=== PATIENT | male | born 1960 | race African-American/Black ===

== ENCOUNTER 2017-05-10 17:51 | Inpatient (IN) ==
--- NOTE | 2017-05-10 18:17 | Cardiology Consult Note ---
Assessment and Plan (1) Chest pain Status: Acute (2) Hypertension Status: Acute (3) Alcohol intoxication Status: Acute History of Present Illness - Data of Consult Patient: new to practice Consult date: 05/10/17 Requesting Physician: Fatoumata Calloway - Consult Narrative Reason for consult: cp History of present illness: The patient is evaluated emergently in the emergency room. I met him upon arrival. Foreign Clerk: Dr. Slade He is a 56-year-old black male without a prior cardiac history. Risk factors are hypertension, tobacco use. He seems to be inebriated during our interview, so the history is a bit tangential and unclear. From what I can ascertain he has been experiencing chest pain off and on for several days. It is a "sticking " in his chest. He is able to localize left-sided chest pain with one finger and is somewhat sore to palpation in his pectoralis at this location. He has some associated shortness of breath and overall feels that he may not be breathing very well. He has not had any other acute illness. He does acknowledge daily alcohol consumption. He has not had a change in his exercise tolerance, denies orthopnea, lower extremity edema, paroxysmal nocturnal dyspnea. He sees Dr. Slade but denies any history of myocardial infarction, cardiac history, cardiac catheterization, arrhythmia. He has a history of hypertension and one pressed acknowledges that he does not really take his medications routinely. In fact he may not take them at all. I was initially involved in this patient's care when a "STEMI alert" was activated. An ECG was faxed to me, which by my interpretation was underwhelming for clear-cut STEMI with significant baseline artifact in the lateral region in question. There is some mild poor R-wave progression anteriorly that could suggest a prior NH. Accordingly we asked him to stop in the ER for further evaluation. Repeat ECG in the emergency room does not show any ST elevation. The patient is hemodynamically stable. He has received Lovenox, Integrilin, Plavix and aspirin. Impression and plan: 1. Chest pain-in general rather atypical characteristics. We will check the patient's repeat cardiac biomarkers. His CK is significantly elevated, with a minimal amount of troponin which is much more consistent with a rhabdomyolysis type picture. Query as to whether or not he may have fallen or had some downtime, particularly given his inebriation. We will cycle his cardiac biomarkers. We can get an echocardiogram tomorrow to further evaluate his underlying cardiac function. Consider CT chest PE protocol. 2. Hypertension-he is noncompliant with his regimen. 3. Elevated CK-this is suspicious for muscle injury. 4. Inebriation-I believe he uses chronic alcohol daily for what he tells me. We should also check urine drug screen to rule out polysubstance abuse. CC: - Home Medications and Allergies Allergies/Adverse Reactions: Allergies Allergy/AdvReac Type Severity Reaction Status Date / Time No Known Allergies Allergy Verified 05/10/17 17:59 ROS unobtainable: due to mental status 12 point system: reviewed and no additional remarkable complaints except as stated Medical,Surgical,& Family Hx - Medical History Cardio: History of: Hypertension - Social History Smoking Status: Current every day smoker Frequency of Alcohol Use: Frequently Type of Drug Use: Unknown Functional capacity: independent ambulation Physical Examination Vital Signs Temp Pulse Resp BP Pulse Ox 97.3 F L 84 18 133/81 97 05/10/17 17:52 05/10/17 17:52 05/10/17 17:52 05/10/17 17:52 05/10/17 17:52 Exam: General appearance: normal weight, no acute distress - Head Head exam: Present: normal inspection, normocephalic, atraumatic. Absent: hematoma, laceration - Eye Eye exam: Present: EOMI. Absent: conjunctival injection, nystagmus, periorbital swelling, scleral icterus, laceration to eyelids Pupils: Present: PERRL. Absent: constricted, dilated, fixed, irregular, unequal - ENT ENT exam: Present: normal exam, normal external ear exam - Neck Neck exam: Present: normal inspection. Absent: lymphadenopathy, meningismus, tenderness, thyromegaly - Respiratory Respiratory exam: Present: clear to auscultation bilaterally, there is left wall chest tenderness to palpation. Absent: accessory muscle use - Cardiovascular Cardiovascular exam: Present: regular rate and rhythm. Absent: carotid bruit, gallop, JVD, rubs - GI/Abdominal GI/Abdominal exam: Present: normal bowel sounds, soft. Absent: distended, firm , guarding, hernia, mass, tenderness, rebound. - Extremities Exam Extremities exam: Present: normal inspection, normal capillary refill. Absent: calf tenderness, edema - Back Exam Back exam: Present: normal inspection. Absent: muscle spasm, vertebral tenderness - Neurological Exam Neurological exam: Present: alert, oriented X3, grossly intact without resting or intention tremor - Psychiatric Psychiatric exam: Present: normal affect, normal mood - Skin Skin exam: Present: normal color, warm, dry, intact. Absent: cyanosis, diaphoretic, rash, urticaria Result/EKG - EKG EKG results: interpreted by me, sinus rhythm, no acute changes
[2017-05-10] MEDS ORDERED: MORPHINE 2 MG/1 ML SYRINGE IV STA (18:30)
[2017-05-10] MEDS ORDERED: ASPIRIN 325 MG TABLET PO STA (18:30)
[2017-05-10] MEDS ORDERED: ONDANSETRON 4 MG/2 ML VIAL IV STA (18:30)
--- NOTE | 2017-05-10 18:38 | Emergency Department Note ---
Enrique John Manpreet, am scribing for, and in the presence of, Fatoumata Calloway DO 18: 33. IBrodie Debra, DO, personally performed the services described in this documentation, ascribed by Isauro Nunez in my presence, and it is both accurate and complete 837 . Arrival - Arrival Chief Complaint: Chest Pain Stated Complaint: cp sob ED Nursing Triage Note: c/o cp. Patient was transported from [facility] for a STEMI. patient has elevation in 3 leads on ekg from [facility]. Per ems patient showing elevation in 3 leads on there monitor. Patient states he is sob and they cp is coming and going on arrival to our ed. Patient states that his chest has been hurting for a couple days but got worse today and it started effecting his breathing. Mode of Arrival: Stretcher Limitations: No Limitations Source: Patient Time Seen by Provider: 05/10/17 18:20 - History of Present Illness HPI Narrative: Pt is a 56 y/o male who is transferred from [facility] with a STEMI. Pt states he had CP for a couple of days which worsened today. Pt also reports of EtOH use and drinking beer earlier today. Pt c/o being SOB currently and states he has seen a Dr in [place] recently. STEMI was intially activated but cardiology consultation by Dr. Lyons determined there was no ST elevation on EKG performed upon pt arrival. No other pains/complaints reported to the ED. Onset (ago): day(s) ("Several days") Consistency: constant Severity: moderate Severity scale (1-10): 4 Allergies/Adverse Reactions: Allergies Allergy/AdvReac Type Severity Reaction Status Date / Time No Known Allergies Allergy Verified 05/10/17 17:59 Home Medications: Home Medications Medication Instructions Recorded Confirmed Type Metoprolol Tartrate 25 mg PO BID 05/10/17 History Phenytoin Sodium Extended 100 mg PO TID 05/10/17 History dilTIAZem HCl [Diltiazem ER] 240 mg PO DAILY 05/10/17 History risperiDONE [Risperidone] 2 mg PO BID 05/10/17 History traZODone [Desyrel] 150 mg PO BEDTIME 05/10/17 History Review of System - Review of System 12 point system: reviewed and no additional remarkable complaints except as stated - Review of System Constitutional: Absent: chills, diaphoresis, fever Respiratory: Present: respiratory distress. Absent: cough, wheezing Cardiovascular: Present: chest pain Gastrointestinal: Absent: abdominal pain, nausea, vomiting, diarrhea Genitourinary male: Absent: dysuria Musculoskeletal: Absent: arm pain, back pain, lower back pain, leg pain, neck pain Neurological: Absent: headache, weakness, numbness, paresthesias Medical,Surgical,& Family Hx - Medical History Cardio: History of: CAD, Hypertension - Social History Smoking Status: Current every day smoker Frequency of Alcohol Use: Frequently Type of Drug Use: Unknown Exam Vital Signs: Vital Signs Temperature 97.3 F L 05/10/17 18:01 Pulse Rate 84 05/10/17 18:01 Respiratory Rate 24 05/10/17 18:04 Blood Pressure 133/81 05/10/17 18:01 O2 Sat by Pulse Oximetry 97 05/10/17 17:52 - General General appearance: alert, in no apparent distress, other (Smells of EtOH) - Head Head exam: Present: atraumatic, normocephalic, normal inspection - Eye Eye exam: Present: normal appearance, PERRL, EOMI - ENT ENT exam: Present: normal exam, normal oropharynx, mucous membranes moist, TM's normal bilaterally - Neck Neck exam: Present: normal inspection, full ROM, trachea midline. Absent: tenderness - Chest Chest inspection: Present: normal inspection, symmetric chest wall rise. Absent : tenderness - Respiratory Respiratory exam: Present: normal lung sounds bilaterally. Absent: accessory muscle use, respiratory distress - Cardiovascular Cardiovascular exam: Present: regular rate, normal rhythm, normal heart sounds. Absent: murmur, rubs, gallop - Abdominal Exam Abdominal exam: Present: soft, normal bowel sounds. Absent: distention, tenderness - Extremities Exam Extremities exam: Present: normal inspection, full ROM. Absent: tenderness - Back Exam Back exam: Present: normal inspection, full ROM. Absent: tenderness - Neurological Exam Neurological exam: Present: alert, oriented X3, CN II-XII intact, reflexes normal - Psychiatric Psychiatric exam: Present: normal affect, normal mood - Skin Skin exam: Present: warm, dry, intact, normal color. Absent: pallor Results - Labs Lab Results: I have reviewed the patients labs Labs: Laboratory Tests 05/10/17 05/10/17 18:45 18:45 D-Dimer, Quantitative 0.6 Total Creatine Kinase 1605 H CK-MB (CK-2) 1.4 Troponin I < 0.015 - Diagnostic Findings Procedure: Chest x-ray: report reviewed by me ("Chest X-ray: Normal Chest.")
[2017-05-10] MEDS ORDERED: ONDANSETRON 4 MG/2 ML VIAL ONE (18:50)
[2017-05-10] MEDS ORDERED: MORPHINE 2 MG/1 ML SYRINGE ONE (18:50)
--- NOTE | 2017-05-10 18:58 | XRay Report ---
Portable chest Indication: Chest pain Comparison: Same date at 4:55 PM Findings: Cardiomediastinal contours are normal. Lungs are clear bilaterally. No acute osseous abnormalities. Visualized upper abdomen demonstrates no acute pathology. Impression: Normal chest PROCEDURE INTERPRETED AT [facility] DEPARTMENT OF RADIOLOGY Final Report Signed by: Madelyn Tsai MD
[2017-05-10 19:22] LABS: Troponin I Only < 0.015 NG/ML (0.00-0.045)
[2017-05-10] MEDS ORDERED: SODIUM CHLORIDE 0.9% 1,000 ML IV STA (20:05)
--- NOTE | 2017-05-10 22:44 | Hospitalist History & Physical ---
Assessment and Plan (1) Elevated CPK Status: Acute Assessment and plan: This most likely is from musculoskeletal structures. Suspect. Muscle injury may be from his multiple falls. Suspect the patient may have been having syncope if not seizures Current Visit: Yes (2) Rhabdomyolysis Status: Acute Assessment and plan: This gentleman presents here with a CPK greater than 1600 he will need a lot of hydration. Is complaining of hurting all over. Right now start him with a D5 normal saline banana bag on top of what he has received already. Be receiving at least 5 L in the coming 48 hours. Follow electrolytes as time goes. A repeat BMP and phosphorous will be done tomorrow alongside magnesium. I also intend to alkalinize his urine by giving him sodium bicarbonate tablets at least 650 mg 3 times a day for the next 3 days. I do not know what his creatinine is like but oral sodium bicarbonate can only help in this regard. Current Visit: Yes (3) First degree AV block Status: Acute Assessment and plan: Repeat EKG in the morning. Current Visit: Yes (4) Chest pain Status: Acute Assessment and plan: So far troponins have been nondiagnostic. Suspect this is part of her body musculoskeletal injury. Underwent troponin series with 3 hours and verified. Current Visit: Yes (5) Hypertension Status: Acute Assessment and plan: Patient cannot remember what medicine was using at home. Probably start him on amlodipine 5 mg daily alongside Dyazide 37.5/25 once a day; obviously holding that until high numbers are verified on the monitoring. Current Visit: Yes (6) Alcohol intoxication Status: Acute Assessment and plan: Watch out for DVTs. Patient is put on Ativan. Will check alcohol level since I do not have the baseline at this point. Advised patient against alcohol overuse. Current Visit: Yes History of Present Illness Chief complaint: Generalized myalgias/elevated CPK passing out spells/? Rhabdomyolysis History of present illness: Mr. Duarte is a 56 year old male transferred to this hospital from an outlying hospital after he was found to have elevated CPK to the tune of 1670 and after crystalloid infusion came down to 1605 an EKG that shows first-degree AV block repolarization abnormalities that people at that hospital thought this was a ST elevation myocardial infarction. Patient's troponins modest CPK-MB is also modest. He acknowledges hurting all over but also having chest pains on and off. And he acknowledges having passing out spells starting about 2 months ago ; no documentation of seizure activity. Patient is a heavy alcoholic with a tremulousness now including vocal tremors. He has a history of hypertension taking a medication he cannot remember. He does not even remember his primary care provider. He has no known drug allergies. He wants to be a full code. He denies a history of diabetes. He is a smoker who states that he smoked less than 1 pack in 3 days. Has been counseled against smoking especially with his current medical health. He is not agreeable to quitting smoking at this point. Time for counseling with about 10 minutes. Home Medications Medication Instructions Recorded Confirmed Type Metoprolol Tartrate 25 mg PO BID 05/10/17 History Phenytoin Sodium Extended 100 mg PO TID 05/10/17 History dilTIAZem HCl [Diltiazem ER] 240 mg PO DAILY 05/10/17 History risperiDONE [Risperidone] 2 mg PO BID 05/10/17 History traZODone [Desyrel] 150 mg PO BEDTIME 05/10/17 History Allergies Allergy/AdvReac Type Severity Reaction Status Date / Time No Known Allergies Allergy Verified 05/10/17 17:59 Medical,Surgical,& Family Hx - Medical History Cardio: History of: CAD, Hypertension - Social History Smoking Status: Current every day smoker Frequency of Alcohol Use: Frequently Type of Drug Use: Unknown Review of systems: A 12 point system was attempted patient does not remember much. He does have history of these passing out spells, chest pains on and off, history of hypertension and was brought in to this hospital from another healthcare facility after an EKG was done and patient was found to have very high CPKs. The strong suggestion this gentleman is presenting here for rhabdomyolysis. Is I am sitting here I do not have any labs done at another institution. One is to do a complete laboratory evaluation study with complete metabolic profile and CBC HIV screen alcohol level urine drug screen cardiac markers and the urinalysis. Also obtain an MRI of the brain with contrast to evaluate for his new onset seizures. Exam - Constitutional Vitals: Period Temp Pulse Resp BP Sys/Cleary Pulse Ox Last 24 Hr 97.3 F-97.3 F 84-84 18-24 133-133/81-81 97 General appearance: normal weight, no acute distress, other (Tremulous with a tremulous voice) - Head Head exam: Present: normocephalic, atraumatic - Eye Eye exam: Present: EOMI Pupils: Present: CHARLES - ENT ENT exam: Present: normal oropharynx - Neck Neck exam: Present: other (Neck is supple no adenopathy no thyromegaly no JVD) - Respiratory Respiratory exam: Present: clear to auscultation bilaterally - Cardiovascular Cardiovascular exam: Present: regular rate and rhythm - GI/Abdominal GI/Abdominal exam: Present: normal bowel sounds, soft (With involuntary guarding of the abdominal wall but denies any tenderness) - Extremities Exam Extremities exam: Present: other (Patient can move all 4 extremities but is tremulous and incoordinated no focal neurologic deficits that I can notice on assessment of his musculature) - Neurological Exam Neurological exam: Present: alert, oriented X3, CN II-XII intact - Psychiatric Psychiatric exam: Present: other (Looks rather apprehensive) - Skin Skin exam: Present: normal color, warm, dry Results - Labs Lab Results: I have reviewed the past 24 hour labs (All results are pending I do not have any numbers from the other institution other than report of his CPK and that old EKG)
[2017-05-10] MEDS ORDERED: LORazepam 2 MG/1 ML VIAL IV PRN (22:56)
[2017-05-10 23:43] LABS: Basophils % 0.5 % (0.0-0.8); Eosinophils % 0.9 % (0.00-10.9); Hematocrit 31.8 VOL% (42.0-52.0); Hemoglobin 10.9 GM/DL (14.0-18.0); Immature Granulocytes % 0.2 %; Immature Granulocytes Absolute 0.01 #; Lymphocytes # 3.3 10*3/uL (1.4-4.0); Lymphocytes % 75.7 % (21.2-54.2); Mean Corpuscular HGB Conc 34.3 GM/DL (32-36); Mean Corpuscular Hemoglobin 30 PG (27-34); Mean Corpuscular Volume 86.2 FL (87-102); Mean Platelet Volume 9.6 FL (9.6-12.0); Monocytes # 0.3 10*3/uL (0.11-0.8); Monocytes % 5.9 % (1.7-12.7); Neutrophils # 0.7 10*3/uL (1.4-7.4); Neutrophils % 16.8 % (38.7-73.9); Platelet Count 213 T/CUMM (130-400); Red Blood Count 3.69 MC/CUMM (3.8-5.5); Red Cell Distribution Width 15.3 % (9.3-17.3); White Blood Count 4.4 T/CUMM (4-12)
[2017-05-11] MEDS ORDERED: THIAMINE INJ 100 MG, FOLIC ACID INJ 1 MG, MULTIVITAMIN INJ 10 ML in DEXTROSE 5% NACL 0.... IV ONE
[2017-05-11 00:25] LABS: Alanine Aminotransferase 34 U/L (16-61); Albumin 3.4 G/DL (3.4-5.0); Alkaline Phosphatase 64 U/L (45-117); Aspartate Amino Transferase 77 U/L (0-37); Bilirubin,Total < 0.39 MG/DL (0.2-1.0); Blood Urea Nitrogen 12 MG/DL (7-18); Calcium 8.4 MG/DL (8.5-10.1); Glucose 77 MG/DL (74-106); Magnesium 1.9 MG/DL (1.8-2.4); Osmolality,Calculated 281.1 MOS/KG (273-304); Potassium 3.7 MMOL/L (3.5-5.1); Sodium 142 MMOL/L (136-145); Total Protein 7.4 G/DL (6.4-8.3)
[2017-05-11 00:31] LABS: Troponin I Only < 0.015 NG/ML (0.00-0.045)
[2017-05-11 05:25] LABS: Eosinophils 1 % (0-10); Lymphocytes 76 % (20-55); Segmented Neutrophils 19 % (50-85); Total Cells Counted 100
[2017-05-11 05:26] LABS: Barbiturates Screen,Urine Negative (Negative); Benzodiazepines Screen,Urine Negative (Negative); Cannabinoid Screen,Urine Negative (Negative); Opiate Screen,Urine Positive (Negative); Phencyclidine Screen,Urine Negative (Negative)
[2017-05-11 05:27] LABS: Platelet Estimate Normal; Target Cells Few
[2017-05-11 05:27] LABS: Calcium 7.9 MG/DL (8.5-10.1); Phosphorous 3.4 MG/DL (2.5-4.9)
[2017-05-11 05:28] LABS: Magnesium 1.8 MG/DL (1.8-2.4); Potassium 3.8 MMOL/L (3.5-5.1)
--- NOTE | 2017-05-11 07:20 | Order Completion Report ---
See report scanned to EMR
[2017-05-11] MEDS ORDERED: ONDANSETRON 4 MG/2 ML VIAL IV PRN (08:49)
[2017-05-11] MEDS ORDERED: chlordiazePOXIDE 25 MG CAPSULE PO PRN (08:50)
[2017-05-11] MEDS ORDERED: INFLUENZA VIRUS VACCINE 0.5 ML SYRINGE IM ONE (09:00)
[2017-05-11] MEDS ORDERED: PNEUMOCOCCAL VACCINE (23 VALENT) 0.5 ML VIAL IM ONE (09:00)
[2017-05-11] MEDS ORDERED: SODIUM BICARBONATE 650 MG TABLET PO SCH (09:00)
[2017-05-11] MEDS ORDERED: ZALEPLON 5 MG CAPSULE PO PRN (09:55)
[2017-05-11] MEDS ORDERED: DOCUSATE SODIUM 100 MG CAPSULE PO PRN (09:55)
[2017-05-11] MEDS: MULTIVITAMIN (CENTRUM) TABLET PO SCH (09:57)
[2017-05-11] MEDS: THIAMINE 100 MG TABLET PO SCH (09:57)
[2017-05-11] MEDS: FOLIC ACID 1 MG TABLET PO SCH (09:57)
[2017-05-11] MEDS: SODIUM CHLORIDE 0.9% 1,000 ML IV SCH ×3 (09:58→22:18)
[2017-05-11] MEDS: chlordiazePOXIDE 10 MG CAPSULE PO SCH ×2 (10:01→17:59)
--- NOTE | 2017-05-11 10:12 | Hospitalist Progress Note ---
Assessment and Plan (1) Alcohol abuse Status: Acute Assessment and plan: Will start librium Librium and ativan prn Current Visit: Yes (2) Polysubstance abuse Status: Acute Assessment and plan: UDS positive for cocaine and opiates Current Visit: Yes (3) Chest pain Status: Acute Assessment and plan: History of chest pain, reproducible on exam Troponin negative x2 Cardiology on board Current Visit: Yes (4) Hypertension Status: Acute Assessment and plan: On metoprolol outpatient, doubt is compliance Also probably not the best choice since he likes cocaine Current Visit: Yes (5) Alcohol intoxication Status: Acute Current Visit: Yes (6) Rhabdomyolysis Status: Acute Assessment and plan: CPK 1600s IV fluids Current Visit: Yes (7) Seizure disorder Status: Acute Assessment and plan: Patient seems unsure of this history, listed as taking phenytoin Levels are low, restart Current Visit: Yes Hospitalist: Subjective Interval history: No acute events overnight. Patient complaining of nausea this morning. He reports to me that he roughly drinks a fifth of whiskey and ~12 beers per day, but not sure how accurate this is. He says that he does not remember the last time that he did cocaine. He does not associate his cocaine use with his chest pain. He is a poor historian. Exam - Constitutional Vitals: Period Temp Pulse Resp BP Sys/Cleary Pulse Ox Last 24 Hr 97 F-97.6 F 71-84 16-24 133-172/80-104 90-98 General appearance: normal weight - Head Head exam: Present: normocephalic, atraumatic - Eye Eye exam: Present: EOMI Pupils: Present: CHARLES - ENT ENT exam: Present: normal exam - Neck Neck exam: Present: normal inspection - Respiratory Respiratory exam: Present: clear to auscultation bilaterally - Cardiovascular Cardiovascular exam: Present: regular rate and rhythm - GI/Abdominal GI/Abdominal exam: Present: normal bowel sounds, soft. Absent: tenderness, rebound - Extremities Exam Extremities exam: Present: normal inspection - Back Exam Back exam: Present: normal inspection - Neurological Exam Neurological exam: Present: alert, oriented X3 - Psychiatric Psychiatric exam: Present: normal affect, normal mood - Skin Skin exam: Present: warm, intact Results - Labs CBC & BMP: 05/10/17 23:17 05/11/17 04:36
[2017-05-11] MEDS: PHENYTOIN ER 100 MG CAPSULE PO SCH ×3 (10:26→20:50)
[2017-05-11] MEDS: PANTOPRAZOLE 40 MG TABLET PO SCH (10:26)
[2017-05-11] MEDS: ENOXAPARIN 40 MG/0.4 ML SYRINGE SUBCUT SCH (10:26)
[2017-05-11] MEDS: risperiDONE 1 MG TABLET PO SCH ×2 (10:26→20:50)
--- NOTE | 2017-05-11 13:33 | Magnetic Resonance Report ---
Exam: MRI brain without and with contrast Exam date: 05/11/2017 105 PM Indication: 56-year-old male, recurrent syncopal events Comparison: No relevant comparisons Technique: Multiplanar, multisequence magnetic resonance imaging of the brain prior to and after 12 mL gadolinium-based intravenous contrast was performed in routine fashion. Axial, coronal and sagittal images submitted for interpretation Findings: Parenchyma: No intra or extra-axial hemorrhage. No mass effect or midline shift. Mild generalized atrophy and microangiopathic small vessel ischemic changes. No abnormal enhancement Ventricles and sulci: Normal in size and configuration Posterior fossa: Cerebellum, brainstem and cervicomedullary junction are preserved Orbits and sinuses: Globes and orbits are intact. Periorbital and pericavernous spaces are normal. Mild paranasal sinus inflammatory changes Sella: Pituitary is normal. Osseous: No abnormality of the skull base or calvarium is identified Impression: 1. Mild atrophy and early microangiopathic small vessel ischemic changes. No acute intracranial abnormality. 2. Mild paranasal sinus inflammatory changes. PROCEDURE INTERPRETED AT [facility] DEPARTMENT OF RADIOLOGY Final Report Signed by: Madelyn Tsai MD
--- NOTE | 2017-05-11 13:41 | Order Completion Report ---
See report scanned to EMR
--- NOTE | 2017-05-11 13:49 | Cardiology Progress Note ---
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 He has a same chest discomfort he presented with but overall this is improving. It continues to be reproducible. Cardiac biomarkers remain negative. Urine drug screen is positive for cocaine as well. Impression and plan: 1. Chest pain-symptoms are atypical of cardiac disease, there reproducible, and cardiac biomarkers have been negative despite his ongoing complaints. Cocaine use is likely contributing. 2. Hypertension-he is noncompliant with his regimen. Consider changing from a beta-jimbo due to his cocaine use. 3. Elevated CK-this is suspicious for muscle injury. 4. Polysubstance abuse-the merits of abstinence have been discussed. I will sign off, please feel free to reconsult for any dynamic cardiac issues. Exam (Progress Note) - Constitutional Vitals: Period Temp Pulse Resp BP Sys/Cleary Pulse Ox Last 24 Hr 97 F-97.6 F 67-84 16-24 133-179/80-105 90-99 Exam: General appearance: normal weight, no acute distress - Head Head exam: Present: normal inspection, normocephalic, atraumatic. Absent: hematoma, laceration - Eye Eye exam: Present: EOMI. Absent: conjunctival injection, nystagmus, periorbital swelling, scleral icterus, laceration to eyelids Pupils: Present: PERRL. Absent: constricted, dilated, fixed, irregular, unequal - ENT ENT exam: Present: normal exam, normal external ear exam - Neck Neck exam: Present: normal inspection. Absent: lymphadenopathy, meningismus, tenderness, thyromegaly - Respiratory Respiratory exam: Present: clear to auscultation bilaterally. Absent: accessory muscle use - Cardiovascular Cardiovascular exam: Present: regular rate and rhythm. Absent: carotid bruit, gallop, JVD, rubs - GI/Abdominal GI/Abdominal exam: Present: normal bowel sounds, soft. Absent: distended, firm , guarding, hernia, mass, tenderness, rebound. - Extremities Exam Extremities exam: Present: normal inspection, normal capillary refill. Absent: calf tenderness, edema - Back Exam Back exam: Present: normal inspection. Absent: muscle spasm, vertebral tenderness - Neurological Exam Neurological exam: Present: alert, oriented X3, grossly intact without resting or intention tremor - Psychiatric Psychiatric exam: Present: normal affect, normal mood - Skin Skin exam: Present: normal color, warm, dry, intact. Absent: cyanosis, diaphoretic, rash, urticaria The chest wall is tender to palpation. Result/EKG - Labs CBC & BMP: 05/10/17 23:17 05/11/17 04:36 Lab Results: I have reviewed the past 24 hour labs Labs: Laboratory Results - last 24 hr 05/10/17 05/10/17 05/10/17 03:10 18:45 18:45 WBC RBC Hgb Hct MCV MCH MCHC RDW Plt Count MPV Neut % (Auto) Lymph % (Auto) [place] % (Auto) Eos % (Auto) Baso % (Auto) Neut # (Auto) Lymph # (Auto) [place] # (Auto) Eos # (Auto) Baso # (Auto) Total Counted Immature Gran % Nucleated RBC % Immature Gran # Segmented Neutrophils Lymphocytes Monocytes Eosinophils Basophils Nucleated RBCs # Platelet Estimate Immature Plt Fraction Target Cells D-Dimer, Quantitative 0.6 Sodium Potassium Chloride Carbon Dioxide Anion Gap BUN Creatinine GFR Calculation BUN/Creatinine Ratio Glucose Calculated Osmolality Calcium Phosphorus Magnesium Total Bilirubin AST ALT Alkaline Phosphatase Total Creatine Kinase 1605 H CK-MB (CK-2) 1.4 Troponin I < 0.015 Total Protein Albumin Globulin Albumin/Globulin Ratio Urine Opiates Screen Positive H Ur Barbiturates Screen Negative Phenytoin Ur Phencyclidine Scrn Negative U Amphetamine/Methamph Negative U Benzodiazepines Scrn Negative U Cocaine Metab Screen Positive H U Cannabinoids Screen Negative Serum Alcohol 05/10/17 05/10/17 05/10/17 23:17 23:17 23:17 WBC 4.4 RBC 3.69 L Hgb 10.9 L Hct 31.8 L MCV 86.2 L MCH 30 MCHC 34.3 RDW 15.3 Plt Count 213 MPV 9.6 Neut % (Auto) 16.8 L Lymph % (Auto) 75.7 H [place] % (Auto) 5.9 Eos % (Auto) 0.9 Baso % (Auto) 0.5 Neut # (Auto) 0.7 L Lymph # (Auto) 3.3 [place] # (Auto) 0.3 Eos # (Auto) 0.0 Baso # (Auto) 0.0 Total Counted 100 Immature Gran % 0.2 Nucleated RBC % 0.0 Immature Gran # 0.01 Segmented Neutrophils 19 L Lymphocytes 76 H Monocytes 3 Eosinophils 1 Basophils 1.0 H Nucleated RBCs # 0.00 Platelet Estimate Normal Immature Plt Fraction 0.0 Target Cells Few D-Dimer, Quantitative Sodium 142 Potassium 3.7 Chloride 107 Carbon Dioxide 23 Anion Gap 15.7 H BUN 12 Creatinine 1.10 GFR Calculation 98 BUN/Creatinine Ratio 10.00 Glucose 77 Calculated Osmolality 281.1 Calcium 8.4 L Phosphorus Magnesium 1.9 Total Bilirubin < 0.39 AST 77 H ALT 34 Alkaline Phosphatase 64 Total Creatine Kinase 1655 H CK-MB (CK-2) 1.5 Troponin I < 0.015 Total Protein 7.4 Albumin 3.4 Globulin 4.0 H Albumin/Globulin Ratio 0.8 L Urine Opiates Screen Ur Barbiturates Screen Phenytoin Ur Phencyclidine Scrn U Amphetamine/Methamph U Benzodiazepines Scrn U Cocaine Metab Screen U Cannabinoids Screen Serum Alcohol 05/10/17 05/10/17 05/11/17 23:17 23:55 04:36 WBC RBC Hgb Hct MCV MCH MCHC RDW Plt Count MPV Neut % (Auto) Lymph % (Auto) [place] % (Auto) Eos % (Auto) Baso % (Auto) Neut # (Auto) Lymph # (Auto) [place] # (Auto) Eos # (Auto) Baso # (Auto) Total Counted Immature Gran % Nucleated RBC % Immature Gran # Segmented Neutrophils Lymphocytes Monocytes Eosinophils Basophils Nucleated RBCs # Platelet Estimate Immature Plt Fraction Target Cells D-Dimer, Quantitative Sodium 143 Potassium 3.8 Chloride 109 H Carbon Dioxide 23 Anion Gap 14.8 BUN 9 Creatinine 1.10 GFR Calculation 98 BUN/Creatinine Ratio 8.00 Glucose 74 Calculated Osmolality 282.0 Calcium 7.9 L Phosphorus 3.4 Magnesium 1.8 Total Bilirubin AST ALT Alkaline Phosphatase Total Creatine Kinase CK-MB (CK-2) Troponin I Total Protein Albumin Globulin Albumin/Globulin Ratio Urine Opiates Screen Ur Barbiturates Screen Phenytoin 2.1 L Ur Phencyclidine Scrn U Amphetamine/Methamph U Benzodiazepines Scrn U Cocaine Metab Screen U Cannabinoids Screen Serum Alcohol 151 - EKG EKG results: interpreted by me, sinus rhythm, no acute changes
[2017-05-12] MEDS: chlordiazePOXIDE 10 MG CAPSULE PO SCH ×3 (01:27→17:43)
[2017-05-12] MEDS: SODIUM CHLORIDE 0.9% 1,000 ML IV SCH ×6 (01:27→21:17)
[2017-05-12 05:39] LABS: Basophils % 0.8 % (0.0-0.8); Eosinophils # 0.1 10*3/uL (0.0-0.87); Eosinophils % 1.8 % (0.00-10.9); Hematocrit 32.7 VOL% (42.0-52.0); Hemoglobin 11.4 GM/DL (14.0-18.0); Immature Granulocytes % 0.3 %; Immature Granulocytes Absolute 0.01 #; Lymphocytes # 2.3 10*3/uL (1.4-4.0); Lymphocytes % 59.4 % (21.2-54.2); Mean Corpuscular HGB Conc 34.9 GM/DL (32-36); Mean Corpuscular Hemoglobin 30 PG (27-34); Mean Corpuscular Volume 85.2 FL (87-102); Mean Platelet Volume 10.2 FL (9.6-12.0); Monocytes # 0.5 10*3/uL (0.11-0.8); Monocytes % 12.5 % (1.7-12.7); Neutrophils % 25.2 % (38.7-73.9); Platelet Count 200 T/CUMM (130-400); Red Blood Count 3.84 MC/CUMM (3.8-5.5); Red Cell Distribution Width 14.8 % (9.3-17.3); White Blood Count 3.8 T/CUMM (4-12)
[2017-05-12 06:01] LABS: Eosinophils 3 % (0-10); Giant Platelets Few; Hypochromasia 1+; Lymphocytes 50 % (20-55); Ovalocytes Slight; Platelet Estimate Adequate; Segmented Neutrophils 33 % (50-85); Total Cells Counted 100
[2017-05-12 06:14] LABS: Calcium 8.4 MG/DL (8.5-10.1); Osmolality,Calculated 272.5 MOS/KG (273-304); Potassium 3.6 MMOL/L (3.5-5.1)
[2017-05-12 06:26] LABS: Folate 14.5 NG/ML (5.4-24.0)
[2017-05-12] MEDS: PHENYTOIN ER 100 MG CAPSULE PO SCH ×3 (10:02→21:16)
[2017-05-12] MEDS: DILTIAZEM CD 240 MG CAPSULE PO SCH (10:02)
[2017-05-12] MEDS: MULTIVITAMIN (CENTRUM) TABLET PO SCH (10:02)
[2017-05-12] MEDS: FOLIC ACID 1 MG TABLET PO SCH (10:03)
[2017-05-12] MEDS: PANTOPRAZOLE 40 MG TABLET PO SCH (10:03)
[2017-05-12] MEDS: risperiDONE 1 MG TABLET PO SCH ×2 (10:03→21:15)
[2017-05-12] MEDS: ENOXAPARIN 40 MG/0.4 ML SYRINGE SUBCUT SCH (10:04)
[2017-05-12] MEDS: THIAMINE 100 MG TABLET PO SCH (10:04)
--- NOTE | 2017-05-12 10:20 | Hospitalist Progress Note ---
<Park Bain - Last Filed: 05/12/17 11:03> Assessment and Plan (1) Alcohol abuse Status: Acute Assessment and plan: Librium and ativan prn. Current Visit: Yes (2) Chest pain Status: Acute Assessment and plan: Pt. denies chest pain today. Cardiology has signed off. Chest pain thought to be secondary to polysubstance abuse. Current Visit: Yes (3) Hypertension Status: Acute Assessment and plan: Blood pressures have lowered. Pt. on diltiazem. Current Visit: Yes (4) Rhabdomyolysis Status: Acute Assessment and plan: CPK 1224. Down today. Pt. still on IVFs. Current Visit: Yes (5) Polysubstance abuse Status: Chronic Current Visit: Yes Hospitalist: Subjective Interval history: Pt. seen and examined. bilingual student tutor present at the bedside. Labs and chart reviewed. No acute changes noted overnight. Pt. states he feels "weak" this morning but denies chest pain and shortness of breath. CK down to 1224. Cardiology has signed off. VS stable this morning. Continue to follow. Exam - Constitutional Vitals: Period Temp Pulse Resp BP Sys/Cleary Pulse Ox Last 24 Hr 97.4 F-98.0 F 61-68 16-20 115-179/69-105 96-100 General appearance: normal weight, no acute distress - Head Head exam: Present: normal inspection, normocephalic - Eye Eye exam: Present: EOMI Pupils: Present: CHARLES - Respiratory Respiratory exam: Present: clear to auscultation bilaterally. Absent: wheezes - Cardiovascular Cardiovascular exam: Present: regular rate and rhythm - GI/Abdominal GI/Abdominal exam: Present: normal bowel sounds, soft. Absent: tenderness - Extremities Exam Extremities exam: Present: normal capillary refill, full ROM. Absent: edema - Neurological Exam Neurological exam: Present: alert, oriented X3 - Psychiatric Psychiatric exam: Present: normal affect, normal mood - Skin Skin exam: Present: normal color, warm, dry Results - Labs CBC & BMP: 05/12/17 03:58 05/12/17 03:59 Lab Results: I have reviewed the past 24 hour labs <Lexie Lopez - Last Filed: 05/12/17 17:30> Assessment and Plan (1) Alcohol abuse Status: Acute Current Visit: Yes (2) Polysubstance abuse Status: Chronic Current Visit: Yes (3) Chest pain Status: Acute Current Visit: Yes (4) Hypertension Status: Acute Current Visit: Yes (5) Alcohol intoxication Status: Acute Current Visit: Yes (6) Rhabdomyolysis Status: Acute Current Visit: Yes (7) Seizure disorder Status: Acute Current Visit: Yes Hospitalist: Subjective Interval history: Patient seen and examined independently of JOURNEYMAN PRESSMAN Bain, agree with assessment and plan as documented. Continue IV fluids. Possible discharge soon. Exam - Constitutional Vitals: Period Temp Pulse Resp BP Sys/Cleary Pulse Ox Last 24 Hr 97 F-98.0 F 61-71 16-20 115-173/69-97 96-100 Results - Labs CBC & BMP: 05/12/17 03:58 05/12/17 03:59
[2017-05-13 03:51] LABS: Basophils % 0.6 % (0.0-0.8); Eosinophils # 0.1 10*3/uL (0.0-0.87); Eosinophils % 2.9 % (0.00-10.9); Hematocrit 32.2 VOL% (42.0-52.0); Hemoglobin 11.3 GM/DL (14.0-18.0); Immature Granulocytes % 0.3 %; Immature Granulocytes Absolute 0.01 #; Lymphocytes # 1.9 10*3/uL (1.4-4.0); Lymphocytes % 56.9 % (21.2-54.2); Mean Corpuscular HGB Conc 35.1 GM/DL (32-36); Mean Corpuscular Hemoglobin 30 PG (27-34); Mean Corpuscular Volume 84.3 FL (87-102); Mean Platelet Volume 10.6 FL (9.6-12.0); Monocytes # 0.4 10*3/uL (0.11-0.8); Monocytes % 10.3 % (1.7-12.7); Platelet Count 213 T/CUMM (130-400); Red Blood Count 3.82 MC/CUMM (3.8-5.5); Red Cell Distribution Width 14.8 % (9.3-17.3); White Blood Count 3.4 T/CUMM (4-12)
[2017-05-13 04:23] LABS: Calcium 8.6 MG/DL (8.5-10.1); Magnesium 1.6 MG/DL (1.8-2.4); Osmolality,Calculated 278.3 MOS/KG (273-304); Potassium 3.6 MMOL/L (3.5-5.1)
[2017-05-13 05:25] LABS: Eosinophils 2 % (0-10); Lymphocytes 66 % (20-55); Segmented Neutrophils 27 % (50-85); Total Cells Counted 100
[2017-05-13 05:26] LABS: Hypochromasia 1+; Microcytosis Slight
[2017-05-13 05:27] LABS: Platelet Estimate Normal
[2017-05-13] MEDS: SODIUM CHLORIDE 0.9% 1,000 ML IV SCH ×4 (05:45→14:04)
[2017-05-13] MEDS: chlordiazePOXIDE 10 MG CAPSULE PO SCH ×3 (06:00→18:24)
[2017-05-13] MEDS ORDERED: MAGNESIUM SULF RIDER 2 GM in PREMIX 1 EACH IV PRN (06:45)
[2017-05-13] MEDS ORDERED: MAGNESIUM SULF RIDER 4 GM in PREMIX 1 EACH IV PRN (06:45)
[2017-05-13] MEDS: DILTIAZEM CD 240 MG CAPSULE PO SCH (08:12)
[2017-05-13] MEDS: FOLIC ACID 1 MG TABLET PO SCH (08:13)
[2017-05-13] MEDS: risperiDONE 1 MG TABLET PO SCH ×2 (08:13→20:51)
[2017-05-13] MEDS: THIAMINE 100 MG TABLET PO SCH (08:13)
[2017-05-13] MEDS: MULTIVITAMIN (CENTRUM) TABLET PO SCH (08:13)
[2017-05-13] MEDS: PANTOPRAZOLE 40 MG TABLET PO SCH (08:13)
[2017-05-13] MEDS: PHENYTOIN ER 100 MG CAPSULE PO SCH ×3 (08:13→20:52)
[2017-05-13] MEDS: ENOXAPARIN 40 MG/0.4 ML SYRINGE SUBCUT SCH (09:39)
--- NOTE | 2017-05-13 10:54 | Hospitalist Progress Note ---
Assessment and Plan (1) Alcohol abuse Status: Acute Assessment and plan: Librium and ativan prn. Current Visit: Yes (2) Chest pain Status: Acute Assessment and plan: Pt. denies chest pain today. Cardiology has signed off. Chest pain thought to be secondary to polysubstance abuse. Current Visit: Yes (3) Hypertension Status: Acute Assessment and plan: Blood pressures have lowered. Pt. on diltiazem. Current Visit: Yes (4) Rhabdomyolysis Status: Acute Assessment and plan: CPK 1224. Down today. Pt. still on IVFs. Current Visit: Yes (5) Polysubstance abuse Status: Chronic Current Visit: Yes Exam - Constitutional Vitals: Period Temp Pulse Resp BP Sys/Cleary Pulse Ox Last 24 Hr 97 F-98.4 F 60-77 16-20 112-143/68-96 95-99 Results - Labs CBC & BMP: 05/13/17 02:10 05/13/17 02:10
--- NOTE | 2017-05-13 12:12 | Discharge Summary ---
Hospital Course - Hospital Course Hospital Course: Mr. Duarte is a 56 yr old black male patient with a history of hypertension, CAD , tobacco and alcohol abuse that was transferred to our facility on 05/10 after he was noted to have an abnormal EKG with chest pain and an elevated CPK of 1670 at [facility]. Pt. was evaluated by Dr. Lopez in cardiology for what was initially thought to be a STEMI but after EKG was interpreted pt did not have a STEMI. Pt. was evaluated in our ED and noted to have a creatine kinase of 1605. Pt. was admitted to hospitalist service for further evaluation and treatment. Patient was treated with IV fluids. Patient was also given as needed Ativan for possible alcohol withdrawal due to history of heavy alcohol usage. Patient's chest pain resolved and overall discomfort improved. Cardiology signed off case. Kinase continued to decrease. Patient's vital signs and lab work are stable. Today patient creatine kinase is less than 100 and he is stable to be discharged home. Pt. is to follow up with PCP. Further instructions to follow per Dr. Ruiz. Diagnosis - Discharge Diagnosis (1) Alcohol abuse Status: Acute (2) Chest pain Status: Acute (3) Hypertension Status: Acute (4) Rhabdomyolysis Status: Acute (5) Polysubstance abuse Status: Chronic Discharge Plan - Discharge Medications No Action risperiDONE [Risperidone] 2 mg PO BID dilTIAZem HCl [Diltiazem ER] 240 mg PO DAILY Metoprolol Tartrate 25 mg PO BID Phenytoin Sodium Extended 100 mg PO TID traZODone [Desyrel] 150 mg PO BEDTIME - Follow Up or Referral - Forms/Instructions Exam - Constitutional Vitals: Period Temp Pulse Resp BP Sys/Cleary Pulse Ox Last 24 Hr 97.4 F-98.4 F 60-77 16-20 112-139/68-92 95-99 General appearance: normal weight, no acute distress - Head Head exam: Present: normal inspection, normocephalic - Eye Eye exam: Present: EOMI. Absent: laceration to eyelids Pupils: Present: CHARLES - Neck Neck exam: Present: normal inspection - Respiratory Respiratory exam: Present: clear to auscultation bilaterally. Absent: wheezes - Cardiovascular Cardiovascular exam: Present: regular rate and rhythm - GI/Abdominal GI/Abdominal exam: Present: normal bowel sounds, soft. Absent: tenderness - Extremities Exam Extremities exam: Present: normal inspection, normal capillary refill, full ROM - Neurological Exam Neurological exam: Present: alert, oriented X3 - Psychiatric Psychiatric exam: Present: normal affect, normal mood - Skin Skin exam: Present: normal color, warm, dry Discharge Results Labs on day of discharge: Labs from last 24 hours 05/13/17 05/13/17 02:10 02:10 WBC 3.4 L RBC 3.82 Hgb 11.3 L Hct 32.2 L MCV 84.3 L MCH 30 MCHC 35.1 RDW 14.8 Plt Count 213 MPV 10.6 Neut % (Auto) 29.0 L Lymph % (Auto) 56.9 H [place] % (Auto) 10.3 Eos % (Auto) 2.9 Baso % (Auto) 0.6 Neut # (Auto) 1.0 L Lymph # (Auto) 1.9 [place] # (Auto) 0.4 Eos # (Auto) 0.1 Baso # (Auto) 0.0 Total Counted 100 Immature Gran % 0.3 Nucleated RBC % 0.0 Immature Gran # 0.01 Segmented Neutrophils 27 L Lymphocytes 66 H Monocytes 5 Eosinophils 2 Nucleated RBCs # 0.00 Platelet Estimate Normal Immature Plt Fraction 0.0 Hypochromasia 1+ Microcytosis Slight Sodium 141 Potassium 3.6 Chloride 105 Carbon Dioxide 28 Anion Gap 11.6 BUN 8 Creatinine 0.90 GFR Calculation 124 BUN/Creatinine Ratio 8.00 Glucose 99 Calculated Osmolality 278.3 Calcium 8.6 Magnesium 1.6 L Total Creatine Kinase 769 H D DS: Provider Date of admission: 05/10/17 20:41 Primary care physician: . No PCP Attending physician on admission: Lexie Lopez MD Discharging clinician: Park Bain NP
[2017-05-13 20:52] VITALS: BP 136/92
== END 2017-05-13 22:45 | disposition home or self-care (01) | DRG 351 ==
LOC: N.ED 17:51 → N.EDINP 20:41 → SUATTDRO 20:41 → N.TELES 21:32
PROVIDERS: ADMIT Internal Medicine; ATTEND Internal Medicine